=== PATIENT | male | born 1985 | race Caucasian/White ===

== ENCOUNTER 2023-05-27 10:37 | Emergency (ER) | payer MEDICARE, OTHER ==
[~2023-05-27] VITALS: Ht 157.5 cm; Wt 59.0 kg
[2023-05-27 10:44] VITALS: BP 104/67
[2023-05-27] MEDS ORDERED: Cephalexin500 M1 PO (11:18)
== END 2023-05-27 11:53 | disposition home or self-care (01) ==
LOC: ER 10:37
DX: L03.032 Cellulitis of left toe (principal)
CPT/HCPCS: 99283